=== PATIENT | male | born 2000 | race Hispanic/Latino ===

== ENCOUNTER 2021-01-02 14:19 | Inpatient (IN) | payer OTHER ==
[~2021-01-02] VITALS: Ht 167.6 cm; Wt 86.3 kg
[2021-01-02 14:54] LABS: HEMATOCRIT 41.2 % (42.0-52.0); HEMOGLOBIN 14.3 g/dl (13.5-17.5); MEAN CORPUSCULAR HEMOGLOBIN 31.4 pg (27.0-33.0); MEAN CORPUSCULAR HGB CONC 34.7 g/dl (32.0-36.5); MEAN CORPUSCULAR VOLUME 90.4 fl (80.0-96.0); PLATELET COUNT, AUTOMATED 284 10^3/uL (150-450); RED BLOOD COUNT 4.56 10^6/uL (4.30-6.10); WHITE BLOOD COUNT 7.8 10^3/uL (4.0-10.0)
[2021-01-02 15:37] LABS: ACETAMINOPHEN LEVEL < 2.0 UG/ML (10.0-30.0); ALBUMIN 4.5 GM/DL (3.2-5.2); ALT/SGPT 35 U/L (12-78); BILIRUBIN,DIRECT < 0.1 MG/DL (0.0-0.2); BILIRUBIN,TOTAL 0.3 MG/DL (0.2-1.0); BLOOD UREA NITROGEN 15 MG/DL (7-18); CALCIUM LEVEL 9.3 MG/DL (8.5-10.1); CARBON DIOXIDE LEVEL 30 MEQ/L (21-32); CHLORIDE LEVEL 104 MEQ/L (98-107); CREATININE FOR GFR 0.88 MG/DL (0.70-1.30); ETHYL ALCOHOL (ETHANOL) < 0.003 % (0.000-0.010); GLUCOSE, FASTING 90 MG/DL (70-100); POTASSIUM SERUM 3.9 MEQ/L (3.5-5.1); SALICYLATE LEVEL < 1.7 MG/DL (5.0-30.0); SODIUM LEVEL 139 MEQ/L (136-145); THYROID STIMULATING HORMONE 0.336 uIU/ML (0.463-3.98); TOTAL PROTEIN 7.8 GM/DL (6.4-8.2)
[2021-01-02 17:40] LABS: AMPHETAMINES LEVEL URINE NEGATIVE (NEGATIVE); BARBITURATES URINE NEGATIVE (NEGATIVE); BENZODIAZEPINES URINE NEGATIVE (NEGATIVE); CANNABINOIDS URINE NEGATIVE (NEGATIVE); COCAINE METABOLITE URINE NEGATIVE (NEGATIVE); METHADONE URINE NEGATIVE (NEGATIVE); OPIATES URINE NEGATIVE (NEGATIVE); PHENCYCLIDINE URINE NEGATIVE (NEGATIVE)
[2021-01-02 17:42] LABS: RSV AMPLIFICATION NEGATIVE (NEGATIVE)
[2021-01-02] MEDS ORDERED: MAALOX 30 ML SUSP *UDC PO PRN (19:15)
[2021-01-02] MEDS ORDERED: ACETAMINOPHEN TAB 650MG DOSE (2X325MG) PO PRN (19:15)
[2021-01-02] MEDS ORDERED: MOM 30ML SUSPENSION UDC PO PRN (19:15)
[2021-01-02 23:19] VITALS: BP 130/70
--- NOTE | 2021-01-03 10:35 | MHHPEPDOC ---
General Date Of Admission: Jan 02, 2021 Legal Status: 9.39 Chief Complaint "[I have been feeling very depressed and was thinking of killing myself]. History of Present Illness HISTORY OF THE PRESENT ILLNESS: Patient is a 20 -year-old , male, who [has no prior psychiatric history but has been in outpatient counseling on the [facility] for the past month. Patient stated that he has been feeling very worthless and lonely and depressed for the past month due to multiple stressors in his life. He recently found out that his father may not be his biological father but he also has been feeling more lonely and homesick and also does not feel that he is as good as other members in his company. He stated that he was thinking of killing himself and the feeling was getting stronger yesterday so he went to his counseling service on the [facility] who recommended him to come to emergency room. He is denying any previous history of suicidal attempt although he was thinking different ways of doing it for the past 3 weeks. He denies any substance abuse issues denies any history of psychosis and denies any hallucination or paranoia. He had an episode of depression in his high school and was tried on antidepressant once but did not have any very good experience and does not want any antidepressant therapy. He denies any history of rasheeda and denies any history of depression in his family. He admits that he is homesick and does not really feel he is good in his [employer] life and is is ambivalent about his career]. Psychiatric Review of Systems Depression (2 or more weeks): depressed mood, feelings of worthlesness, decreased energy, suicidal thoughts Rasheeda (4 or more days of): denies Psychosis: denies PTSD: denies Anxiety: situational anxiety Past Psychiatric History Previous Psychiatric Diagnosis: . Depression in his high school days Previous Psychiatric Admissions: . No previous inpatient treatment Suicide Attempts: . No history of actual attempt Psychiatric Follow-up: . Been in outpatient counseling for the past month Psychiatric medications: . 1 antidepressant trial several years ago Past Medical History Medical Problems No medical history Head Injury: No Seizures: No Hospitalizations: No Surgeries: No Family Medical/Psychiatric HX Medical Problems Noncontributory Psychiatric Disorders: No Addiction: No Suicide Attemps/Completions: No Addiction History denies Social History childhood: . Born in [place] [employer] uneventful childhood Abuse/Trauma:[No history of abuse]. Current Living Situation: Lives on the [facility]. Education: . High school Employment: . Joined the [employer] last year Social Support: . Family Legal: Patient denies any legal history Marital: . Never Mental Status Examination General Appearance: appears stated age Build: average Demeanor: average Eye Contact: average Activity: average Behavior: cooperative Speech: clear, slow, low in volume Mood: depressed, anxious Mood Feeling sad depressed and feeling worthless at times for the past month Thought Process: logical/linear Thought Content (Delusions): none reported, other (Suicidal thoughts without any clear plan or intent for the past month) Thought Content (Other): none reported Thought Content (Aggressive): none reported Perception (Hallucinations): none reported Perception (Other): none reported Cognition (Impairment of): none reported Cognition(Intelligence Est.): average Oriented: Awake, Alert, Oriented times three Insight: fair Judgment: Fair Psychosis: Denies Diagnoses Depressive disorder NOS rule out adjustment disorder with mixed emotion A-FIB/CHADSVASC A-FIB History Current/History of A-Fib/PAF?: No Current PO Anticoag Therapy: No Age/Risk Factor Scoring CHADSVASC: CHADSVASC Response (Comments) Value Gender Risk Factor Male 0 Hx of CHF No 0 Hx of HTN No 0 Hx of Stroke/TIA/or VTE No 0 Hx of Diabetes No 0 Hx of Vascular Disease No 0 Total 0 Treatment Treatment ordered: NONE Assessment Patient reports significant depressive symptoms but is not willing to consider antidepressant treatment. He has a several situational stressors that could be helped with the individual therapy we will continue with the supportive therapy and lethality evaluation Initial Treatment Plan 1. Patient was admitted on a 9.39 status. 2. Complete history was obtained. 3. With patients permission, family will be contacted and database will be expanded. 4. Patients medication regimen will be reviewed and changed accordingly. 5. Patient will be provided with protected environment. 6. Patient will be treated with individual, group, and milieu therapies. 7. Patient will receive supportive psych-education. 8. Discharge planning will commence immediately. 9. Outpatient follow-up treatment will be strongly recommended. 10. The initial treatment plan will focus initially on: * Depression. * Risk for suicide. ESTIMATED LENGTH OF STAY: 3-5 DAYS. TIME SPENT COUNSELING AND COORDINATING INITIAL CARE: 45 minutes. Tobacco Cessation Screen If Patient is a Smoker Non-smoker N/A-No Antipsychotics Vital Signs Vital Signs Date Time Temp Pulse Resp B/P (MAP) Pulse Ox O2 Delivery O2 Flow Rate FiO2 01/02/21 23:19 97.8 83 18 130/70 (90) 99 Room Air Laboratory Data 24H Labs Laboratory Tests 2 01/02/21 14:45: Nucleated Red Blood Cells % (auto) 0.0, Anion Gap 5L, Calcium Level 9.3, Total Bilirubin 0.3, Direct Bilirubin < 0.1, Aspartate Amino Transf (AST/SGOT) 27, Alanine Aminotransferase (ALT/SGPT) 35, Alkaline Phosphatase 108, Total Protein 7.8, Albumin 4.5, Albumin/Globulin Ratio 1.4, Thyroid Stimulating Hormone (TSH) 0.336L, Salicylates Level < 1.7L, Acetaminophen Level < 2.0L, Ethyl Alcohol Level < 0.003 01/02/21 16:48: Urine Opiates Screen NEGATIVE, Urine Methadone Screen NEGATIVE, Urine Barbiturates Screen NEGATIVE, Urine Phencyclidine Screen NEGATIVE, Urine Amphetamines Screen NEGATIVE, Urine Benzodiazepines Screen NEGATIVE, Urine Cocaine Metabolite Screen NEGATIVE, Urine Cannabinoids Screen NEGATIVE, Coronavirus (COVID-19)(PCR) NEGATIVE, Influenza Type A (RT-PCR) NEGATIVE, Influenza Type B (RT-PCR) NEGATIVE, Respiratory Syncytial Virus (PCR) NEGATIVE CBC/BMP Laboratory Tests 01/02/21 14:45 Medications No Active Prescriptions or Reported Meds Allergies Coded Allergies: No Known Allergies (Unverified , 01/02/21) JENNIFER UNDERWOOD M.D. Jan 03, 2021 10:35
[2021-01-03 16:16] VITALS: BP 145/67
--- NOTE | 2021-01-03 18:07 | HPEPDOC ---
[facility] Medical History & Physical Date of Admission Jan 03, 2021 Date of Service: Jan 03, 2021 History and Physical CHIEF COMPLAINT: Suicidal ideation HISTORY OF PRESENT ILLNESS: 20-year-old male with no prior medical or psychiatric history, presented with thoughts and feelings of low self worth depression and thoughts of suicide. He patient has been having trouble at home is unsure if his father is his biological father. [place] recommended the patient go to the emergency room. Patient denies taking any substances or having any substance abuse issues. He is still having thoughts of self-harm, but denies any hallucinations, auditory or visual. He denies any chest pain, seizures of breath, palpitations, fever, chills, nausea, vomiting, diarrhea. PAST MEDICAL HISTORY: Reports no prior medical history PAST SURGICAL HISTORY: Worsened prior surgical history SOCIAL HISTORY: Patient denies smoking Patient denies etoh use Patient denies illicit drug use ALLERGIES: Please see below. REVIEW OF SYSTEMS: CONSTITUTIONAL: patient denies fevers, chills HEENT: patient denies blurred vision, loss of vision, headache,. CARDIOVASCULAR: patient denies chest pain, palpitations. RESPIRATORY: patient denies shortness of breath, cough, hemoptysis. GASTROINTESTINAL: patient denies abdominal pain, n/v/d, blood in stool. GENITOURINARY: patient denies dysuria, discharge. SKIN: patient denies rashes. MUSCULOSKELETAL: patient denies joint pain, neck pain. NEUROLOGICAL: patient denies focal weakness, numbness, seizures. PSYCHIATRIC: patient denies SI/HI. ENDOCRINE: patient denies polyuria, heat intolerance, cold intolerance. HEMATOLOGIC/LYMPHATIC: patient denies easy bruising. HOME MEDICATIONS: Please see below. PHYSICAL EXAMINATION: VITAL SIGNS: please see below General: NAD, comfortable HEENT: PERRLA, EOMI, sclerae clear Neck: supple, normal ROM, no JVD Respiratory: lungs CTAB, no wheeze, no rales, no crackles CVS: RRR, normal S1, S2, no murmurs Abdo: soft, no masses, no hepatosplenomegaly, BS+, no rebound tenderness Extremities: no edema, pulses 2+ MSK: no joint deformities, normal ROM Neuro: no focal neuro deficits, moving all 4 extremities, CN2-12 intact. Strength 5/5 in all 4 extremities. No nystagmus. Psych: calm, cooperative, AAO x 3 LABORATORY DATA: See below. MICROBIOLOGY: Please see below. ASSESSMENT:-year-old male with no past medical history presented with thoughts of self-harm. Admitted to [facility] for psychiatric treatment. PLAN: Suicidal ideation: Per psychiatry Obesity: Complicating care. BMI 30.7 Hypertension: Likely related to obesity, lifestyle modification and counseling provided. Dispo: admission expect to last > 2 midnights Vital Signs Vital Signs Date Time Temp Pulse Resp B/P (MAP) Pulse Ox O2 Delivery O2 Flow Rate FiO2 01/03/21 16:16 98.1 84 16 145/67 (93) 01/02/21 23:19 99 Room Air Home Medications Scheduled Sertraline HCl (Sertraline HCl) 50 Mg Tablet, 50 MG PO DAILY for Mood Scheduled PRN Trazodone HCl (Trazodone HCl) 50 Mg Tablet, 50 MG PO QHSP PRN for INSOMNIA Allergies Coded Allergies: No Known Allergies (Unverified , 01/02/21) A-FIB/CHADSVASC A-FIB History Current/History of A-Fib/PAF?: No Age/Risk Factor Scoring CHADSVASC: CHADSVASC Response (Comments) Value Gender Risk Factor Male 0 Hx of CHF No 0 Hx of HTN No 0 Hx of Stroke/TIA/or VTE No 0 Hx of Diabetes No 0 Hx of Vascular Disease No 0 Total 0 TREVOR TERRY MD Jan 03, 2021 18:07
[2021-01-04 05:42] VITALS: BP 109/55
--- NOTE | 2021-01-04 08:18 | MHIPNPDOC ---
[facility] Progress Note Progress Note DATE OF SERVICE: 01/04/21 The patient remains markedly withdrawn preoccupied with very blunted affect. He states that he is still feeling very sad and lonely hopeless and at times wort hless. He states that his suicidal thoughts are not as intense and he is not having any homicidal thoughts but does not feel much better and he is willing to try antidepressant medicine. We will start Zoloft 50 mg daily and patient agreed and was given education about the medication. HISTORY:. VITAL SIGNS: See below. NEW TEST RESULTS:. CURRENT MEDICATIONS: See below. MENTAL STATUS EXAMINATION: Patient is a 20-year old male, who is cooperative. Speech: Is rational but not productive. Language skills are good. Thought processes including: Speech is not productive and not spontaneous does not want to elaborate. Thought content: Denies any hallucination or paranoia. Abstract reasoning, and computation: Fair. Description of associations: Coherent. Description of abnormal or psychotic thoughts: Denies any. Judgment: Fair. Insight: Fair. Orientation: Well oriented. Recent and remote memory: Unimpaired. Attention span and concentration: Fair. Language:. Fund of knowledge:. Mood: Sad depressed. Affect: Blunted preoccupied. DIAGNOSES: 1.. Depressive disorder NOS 2.. 3.. ASSESSMENT: Remains depressed with a markedly blunted affect but denies any active suicidal plan or intent MANAGEMENT PLAN: Start Zoloft 50 mg daily supportive therapy. TIME SPENT: 20 minutes. Vital Signs Vital Signs Date Time Temp Pulse Resp B/P (MAP) Pulse Ox O2 Delivery O2 Flow Rate FiO2 01/04/21 05:42 98.4 80 18 109/55 (73) 96 Room Air Current Medications Current Medications Medications (Trade) Dose Ordered Sig/Bernabe Route PRN Reason Start Time Stop Time Status Last Admin Dose Admin Acetaminophen (Tylenol Tab) 650 mg Q6HP PRN PO HEADACHE or MILD DISCOMFORT 01/02/21 19:15 Al Hydrox/Mg Hydrox/Simethicone (Mylanta) 30 ml Q4HP PRN PO HEARTBURN/INDIGESTION 01/02/21 19:15 Home Med (Med Rec Complete!) ASDIRECTED XX 01/02/21 18:40 01/02/21 18:42 DC Hydroxyzine HCl (Atarax) 25 mg Q6HP PRN PO ANXIETY 01/03/21 10:25 Magnesium Hydroxide (Milk Of Magnesia) 30 ml DAILYPRN PRN PO CONSTIPATION 01/02/21 19:15 Trazodone HCl (Desyrel) 50 mg QHSP PRN PO INSOMNIA 01/02/21 19:15 Allergies Coded Allergies: No Known Allergies (Unverified , 01/02/21) JENNIFER UNDERWOOD M.D. Jan 04, 2021 08:18
[2021-01-04] MEDS: hydrOXYzine 25 MG TAB PO PRN (08:19)
[2021-01-04] MEDS: SERTRALINE HCL 50 MG TAB PO SCH (08:41)
[2021-01-04 18:36] VITALS: BP 110/57
[2021-01-04] MEDS: traZODone 50 MG TAB PO PRN (20:59)
[2021-01-05 06:00] VITALS: BP 114/66
[2021-01-05] MEDS: SERTRALINE HCL 50 MG TAB PO SCH (08:47)
--- NOTE | 2021-01-05 15:00 | MHIPNPDOC ---
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 Patient stated that he has been feeling very worthless and lonely and depressed for the past month due to multiple stressors in his life. He recently found out that his father may not be his biological father but he also has been feeling more lonely and homesick and also does not feel that he is as good as other members in his company. He stated that he was thinking of killing himself and the feeling was getting stronger yesterday so he went to his counseling service on the [facility] who recommended him to come to emergency room. He is denying any previous history of suicidal attempt although he was thinking different ways of doing it for the past 3 weeks. He denies any substance abuse issues denies any history of psychosis and denies any hallucination or paranoia. He had an episode of depression in his high school and was tried on antidepressant once but did not have any very good experience and does not want any antidepressant therapy. He denies any history of edilberto and denies any history of depression in his family. He admits that he is homesick and does not really feel he is good in his [employer] life and is ambivalent about his career. VITAL SIGNS: See below. CURRENT MEDICATIONS: See below. 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 who is he also has been feeling more lonely and homesick and also reporting feeling suicidal General Appearance: appears stated age Build: average Demeanor: average Eye Contact: average Activity: average Behavior: cooperative Speech: clear, slow, low in volume Mood: depressed, anxious Mood Feeling sad depressed and feeling worthless at times for the past month Thought Process: logical/linear Thought Content (Delusions): none reported, other (Suicidal thoughts but reports that he was trying with alcohol poisoning and overdose on Tylenol) Thought Content (Other): none reported Thought Content (Aggressive): none reported Perception (Hallucinations): none reported Perception (Other): none reported Cognition (Impairment of): none reported Cognition(Intelligence Est.): average Oriented: Awake, Alert, Oriented times three Insight: fair Judgment: Fair Psychosis: Denies DIAGNOSES: Unspecified Depressive disorder ASSESSMENT: Patient remains depressed and anxious. States that he has been feeling more depressed this week due to the increased stress at work ([employer]) He states that he is taking classes that he is struggling with. Also states that he had poor motivation, misses home and recent information about his family has made it difficult to concentrate. Reports that his depression is 6/10 and his anxiety is 5/10 and has decreased suicidal thinking, not as strong or intense. MANAGEMENT PLAN: Continue all medications as ordered, discharge later this week TIME SPENT: 25 minutes. Vital Signs Vital Signs Date Time Temp Pulse Resp B/P (MAP) Pulse Ox O2 Delivery O2 Flow Rate FiO2 01/05/21 06:00 98.2 77 16 114/66 (82) 99 Room Air Current Medications Current Medications Medications (Trade) Dose Ordered Sig/Bernabe Route PRN Reason Start Time Stop Time Status Last Admin Dose Admin Acetaminophen (Tylenol Tab) 650 mg Q6HP PRN PO HEADACHE or MILD DISCOMFORT 01/02/21 19:15 Al Hydrox/Mg Hydrox/Simethicone (Mylanta) 30 ml Q4HP PRN PO HEARTBURN/INDIGESTION 01/02/21 19:15 Home Med (Med Rec Complete!) ASDIRECTED XX 01/02/21 18:40 01/02/21 18:42 DC Hydroxyzine HCl (Atarax) 25 mg Q6HP PRN PO ANXIETY 01/03/21 10:25 01/04/21 08:19 Magnesium Hydroxide (Milk Of Magnesia) 30 ml DAILYPRN PRN PO CONSTIPATION 01/02/21 19:15 Sertraline HCl (Zoloft) 50 mg DAILY PO 01/04/21 09:00 01/05/21 08:47 Trazodone HCl (Desyrel) 50 mg QHSP PRN PO INSOMNIA 01/02/21 19:15 01/04/21 20:59 Allergies Coded Allergies: No Known Allergies (Unverified , 01/02/21) RADHA BURKS [employer]STRUCTION SERVICES TECHNICIAN Jan 05, 2021 15:00
[2021-01-05 17:10] VITALS: BP 123/58
[2021-01-05] MEDS: traZODone 50 MG TAB PO PRN (20:26)
[2021-01-06] MEDS: SERTRALINE HCL 50 MG TAB PO SCH (08:06)
--- NOTE | 2021-01-06 12:29 | MHIPNPDOC ---
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 Patient stated that he has been feeling very worthless and lonely and depressed for the past month due to multiple stressors in his life. He recently found out that his father may not be his biological father but he also has been feeling more lonely and homesick and also does not feel that he is as good as other members in his company. He stated that he was thinking of killing himself and the feeling was getting stronger yesterday so he went to his counseling service on the [facility] who recommended him to come to emergency room. He is denying any previous history of suicidal attempt although he was thinking different ways of doing it for the past 3 weeks. He denies any substance abuse issues denies any history of psychosis and denies any hallucination or paranoia. He had an episode of depression in his high school and was tried on antidepressant once but did not have any very good experience and does not want any antidepressant therapy. He denies any history of edilberto and denies any history of depression in his family. He admits that he is homesick and does not really feel he is good in his [employer] life and is ambivalent about his career. VITAL SIGNS: See below. CURRENT MEDICATIONS: See below. 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 who is he also has been feeling more lonely and homesick and also reporting feeling suicidal General Appearance: appears stated age Build: average Demeanor: average Eye Contact: average Activity: average Behavior: cooperative Speech: clear, slow, low in volume Mood: depressed, anxious Mood Feeling sad depressed and feeling worthless at times for the past month Thought Process: logical/linear Thought Content (Delusions): none reported, other Thought Content (Other): none reported Thought Content (Aggressive): none reported Perception (Hallucinations): none reported Perception (Other): none reported Cognition (Impairment of): none reported Cognition(Intelligence Est.): average Oriented: Awake, Alert, Oriented times three Insight: fair Judgment: Fair Psychosis: Denies DIAGNOSES: Unspecified Depressive disorder ASSESSMENT: Patient reports mild decrease in depression and anxiety. He states that he would like to leave the [employer] because he wants to feel better in his job. 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 States that he wants to be in a more supportive place in his life. He doesn't believe that the [employer] is the right fit for him. States that he enlisted because he was struggling to find a job. States [employer] is his first active duty station and that he is unhappy. 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 Has limited supports in the [employer]. He is hoping to be discharge from the [employer] before his contract and return home. He is somewhat social with other peers on unit. He was superficial in the interview. MANAGEMENT PLAN: Continue all medications as ordered, discharge later this week TIME SPENT: 25 minutes. Vital Signs Vital Signs Vital Signs Date Time Temp Pulse Resp B/P (MAP) Pulse Ox O2 Delivery O2 Flow Rate FiO2 01/06/21 08:10 Room Air 01/05/21 17:10 98.3 90 16 123/58 (79) 98 Current Medications Current Medications Medications (Trade) Dose Ordered Sig/Bernabe Route PRN Reason Start Time Stop Time Status Last Admin Dose Admin Acetaminophen (Tylenol Tab) 650 mg Q6HP PRN PO HEADACHE or MILD DISCOMFORT 01/02/21 19:15 Al Hydrox/Mg Hydrox/Simethicone (Mylanta) 30 ml Q4HP PRN PO HEARTBURN/INDIGESTION 01/02/21 19:15 Home Med (Med Rec Complete!) ASDIRECTED XX 01/02/21 18:40 01/02/21 18:42 DC Hydroxyzine HCl (Atarax) 25 mg Q6HP PRN PO ANXIETY 01/03/21 10:25 01/04/21 08:19 Magnesium Hydroxide (Milk Of Magnesia) 30 ml DAILYPRN PRN PO CONSTIPATION 01/02/21 19:15 Sertraline HCl (Zoloft) 50 mg DAILY PO 01/04/21 09:00 01/06/21 08:06 Trazodone HCl (Desyrel) 50 mg QHSP PRN PO INSOMNIA 01/02/21 19:15 01/05/21 20:26 Allergies Coded Allergies: No Known Allergies (Unverified , 01/02/21) RADHA BURKS NP Jan 06, 2021 12:12
[2021-01-06 17:06] VITALS: BP 132/66
[2021-01-06] MEDS: traZODone 50 MG TAB PO PRN (20:36)
[2021-01-07 06:24] VITALS: BP 131/73
[2021-01-07] MEDS: SERTRALINE HCL 50 MG TAB PO SCH (08:21)
--- NOTE | 2021-01-07 11:06 | MHIPNPDOC ---
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 Patient stated that he has been feeling very worthless and lonely and depressed for the past month due to multiple stressors in his life. He recently found out that his father may not be his biological father but he also has been feeling more lonely and homesick and also does not feel that he is as good as other members in his company. He stated that he was thinking of killing himself and the feeling was getting stronger yesterday so he went to his counseling service on the [facility] who recommended him to come to emergency room. He is denying any previous history of suicidal attempt although he was thinking different ways of doing it for the past 3 weeks. He denies any substance abuse issues denies any history of psychosis and denies any hallucination or paranoia. He had an episode of depression in his high school and was tried on antidepressant once but did not have any very good experience and does not want any antidepressant therapy. He denies any history of edilberto and denies any history of depression in his family. He admits that he is homesick and does not really feel he is good in his [employer] life and is ambivalent about his career. VITAL SIGNS: See below. CURRENT MEDICATIONS: See below. 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 who is he also has been feeling more lonely and homesick and also reporting feeling suicidal General Appearance: appears stated age Build: overweight Demeanor: average Eye Contact: average Activity: average Behavior: cooperative Speech: clear, slow, low in volume Mood: less depressed affect: brighter Thought Process: logical/linear Thought Content (Delusions): none reported, other Thought Content (Other): none reported Thought Content (Aggressive): none reported Perception (Hallucinations): none reported Perception (Other): none reported Cognition (Impairment of): none reported Cognition(Intelligence Est.): average Oriented: Awake, Alert, Oriented times three Insight: fair Judgment: Fair Psychosis: Denies DIAGNOSES: Unspecified Depressive disorder ASSESSMENT: 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 Has still not talked to chain of command about his avenues to do this. 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 Depres charley is 3/10 and anxiety is 7/10. Patient has history of attempted Tylenol overdose - tried to take 20 pills. Anxious about going back to [place] - worried his team won't see him the same way. Last time he had suicidal ideation was last Tuesday01/02/21. Says that thinking about his family makes him not want to commit suicide. Says that he will be safe to be discharged tomorrow. MANAGEMENT PLAN: Continue all medications as ordered, discharge tomorrow TIME SPENT: 25 minutes. Vital Signs Vital Signs Date Time Temp Pulse Resp B/P (MAP) Pulse Ox O2 Delivery O2 Flow Rate FiO2 01/07/21 08:57 Room Air 01/07/21 06:24 98.3 84 20 131/73 (92) 98 Current Medications Current Medications Medications (Trade) Dose Ordered Sig/Bernabe Route PRN Reason Start Time Stop Time Status Last Admin Dose Admin Acetaminophen (Tylenol Tab) 650 mg Q6HP PRN PO HEADACHE or MILD DISCOMFORT 01/02/21 19:15 Al Hydrox/Mg Hydrox/Simethicone (Mylanta) 30 ml Q4HP PRN PO HEARTBURN/INDIGESTION 01/02/21 19:15 Home Med (Med Rec Complete!) ASDIRECTED XX 01/02/21 18:40 01/02/21 18:42 DC Hydroxyzine HCl (Atarax) 25 mg Q6HP PRN PO ANXIETY 01/03/21 10:25 01/04/21 08:19 Magnesium Hydroxide (Milk Of Magnesia) 30 ml DAILYPRN PRN PO CONSTIPATION 01/02/21 19:15 Sertraline HCl (Zoloft) 50 mg DAILY PO 01/04/21 09:00 01/07/21 08:21 Trazodone HCl (Desyrel) 50 mg QHSP PRN PO INSOMNIA 01/02/21 19:15 01/06/21 20:36 Allergies Coded Allergies: No Known Allergies (Unverified , 01/02/21) RADHA BURKS NP Jan 07, 2021 11:06
[2021-01-07] MEDS ORDERED: TRAZ-252 PO (13:52)
[2021-01-07] MEDS ORDERED: SERT50TA29 PO (13:52)
[2021-01-07] MEDS: hydrOXYzine 25 MG TAB PO PRN (17:01)
[2021-01-07 17:22] VITALS: BP 148/78
[2021-01-07] MEDS: traZODone 50 MG TAB PO PRN (20:15)
[2021-01-08 05:53] VITALS: BP 144/64
[2021-01-08 06:00] VITALS: BP 144/64
[2021-01-08] MEDS: hydrOXYzine 25 MG TAB PO PRN (08:20)
[2021-01-08] MEDS: SERTRALINE HCL 50 MG TAB PO SCH (08:20)
--- NOTE | 2021-01-08 08:59 | MHDSPDOC ---
[facility] Discharge Summary Discharge Summary DATE OF ADMISSION: Jan 02, 2021 at 19:15 DATE OF DISCHARGE: DISCHARGE DIAGNOSES: 1. 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 for the past month. Patient stated that he has been feeling very worthless and lonely and depressed for the past month due to multiple stressors in his life. He recently found out that his father may not be his biological father but he also has been feeling more lonely and homesick and also does not feel that he is as good as other members in his company. He stated that he was thinking of killing himself and the feeling was getting stronger yesterday so he went to his counseling service on the [facility] who recommended him to come to emergency room. He is denying any previous history of suicidal attempt although he was thinking different ways of doing it for the past 3 weeks. He denies any substance abuse issues denies any history of psychosis and denies any hallucination or paranoia. He had an episode of depression in his high school and was tried on antidepressant once but did not have any very good experience and does not want any antidepressant therapy. He denies any history of edilberto and denies any history of depression in his family. He admits that he is homesick and does not really feel he is good in his [employer] life and is ambivalent about his career. VITAL SIGNS: See below. CONSULTANTS INVOLVED: See Medical H + P by Hospitalist TREATMENT AND PROGRESS ON THE UNIT: Patient was admitted to the [facility] on a 9.39 legal status he was afforded the following treatment modalities: 1) Individual Therapy 2) Group Therapy 3) Medication Management 4) Milieu Therapy 5) Safe Environment HOSPITAL COURSE: Patient initially came to the unit for suicidal ideation and attempted suicide and was admitted to [facility] on a 9.39 legal status. 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 He was started on Zoloft 50 mg and he tolerated this well with no reports of side effects. He reported that he had difficulty sleeping and was ordered Trazodone 50 mg at and this was reported to be effective as well. Patient was coope rative on the unit, attended groups, was observed in the milieu engaged and social with another Active Duty solder. He also was agreeable to medications, attended groups and was attentive and engaged in the individual therapy. DISCHARGE ASSESSMENT: Patient initially came to the unit for suicidal ideation and attempted suicide and was admitted to [facility] on a 9.39 legal status. 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 Patient says he no longer has suicidal ideation. Patient is confident that he will no longer have suicidal ideation once he [place] back to base. Patient still reports a depressed mood and some anxiety. When asked why he thinks he will not have suicidal ideation he says that he could not hurt his little sister like that. Patient also says that he talk to his parents that they are very supportive of him. Patient's plan is to try to get discharged from the and then go back home. Patient says that if he is unable to get discharged he will be fine sticking through with and will try to get discharged again in July. In today's interview, patient is alert and oriented, pts dress is appropriate. Hygiene and grooming is well-kempt. Smiles on approach and is pleasant and engaged in the interview. Denies depression and anxiety. Denies suicidal and homicidal ideation, planning or intent. Denies and is not observed with edilberto, psychotic symptoms of delusions, bizarre thinking, obsessions, paranoia, ruminations illogical thoughts, flight of ideas or having poor insight and judgement. Patient has normal mentation, declines further hospitalization on a voluntary status and meets criteria for discharge today. MENTAL STATUS EXAMINATION ON DISCHARGE: Patient is a 20-year old male, who is depressed and has reported suicidal ideation. Speech is normal rate and content. Language skills are intact. Thought processes including: Linear. Thought content: No delusions. Abstract reasoning, and computation: Intact. Description of associations: Intact. Description of abnormal or psychotic thoughts: No psychotic thought. Judgment: Good. Insight: Good. Orientation to alert and oriented x3. Recent and remote memory: Intact. Attention span and concentration: normal. Language: Its content is average to fair. Fund of knowledge: Average. Mood: Patient reports some depressed mood and anxiety but much better than before. Affect: Patient baseline normal. MEDICATIONS ON DISCHARGE: Refer to medication list PLAN/FOLLOWUP ARRANGEMENTS: [facility] will be [facility] to [facility] team will continue treatment and therapy for the patient. The amount of time spent in the coordination of care for this patient was approximately 25 minutes. ETOH/Disorder Med Rx ETOH/DRUG DISORDER RX: Offrd @ d/c & pt refused Vital Signs/I&Os Vital Signs Date Time Temp Pulse Resp B/P (MAP) Pulse Ox O2 Delivery O2 Flow Rate FiO2 01/08/21 05:53 97.7 82 18 144/64 (90) 97 Room Air Medications Scheduled Sertraline HCl (Sertraline HCl) 50 Mg Tablet, 50 MG PO DAILY for Mood, #7 Scheduled PRN Trazodone HCl (Trazodone HCl) 50 Mg Tablet, 50 MG PO QHSP PRN for INSOMNIA, #7 Allergies Coded Allergies: No Known Allergies (Unverified , 01/02/21) RADHA BURKS NP Jan 08, 2021 08:59
== END 2021-01-08 11:31 | disposition home or self-care (01) | DRG 881 ==
LOC: M ED 14:19 → EDBD 14:19 → M ED INP 19:15 → M PSY 22:33
PROVIDERS: ADMIT Psychiatry & Neurology Psychiatry; ATTEND Psychiatry & Neurology Psychiatry
DX: F32.9 Major depressive disorder, single episode, unspecified (principal); R45.851 Suicidal ideations; Z20.822 Contact with and (suspected) exposure to COVID-19; E66.9 Obesity, unspecified; Z68.30 Body mass index [BMI] 30.0-30.9, adult; I10 Essential (primary) hypertension; Z79.899 Other long term (current) drug therapy; Z56.3 Stressful work schedule; Z91.5 Personal history of self-harm

== ENCOUNTER 2021-02-06 20:43 | Emergency (ER) | payer OTHER ==
[~2021-02-06] VITALS: Ht 167.6 cm; Wt 100.0 kg
[~2021-02-06 20:43] MED LIST: SERT50TA29 PO; TRAZ-252 PO
[2021-02-06] MEDS ORDERED: NS 1,000 ML IV ONE (21:05)
[2021-02-06 21:24] LABS: BASO % 0.2 % (0.0-1.0); EOS % 0.1 % (0.0-3.0); HEMATOCRIT 38.7 % (42.0-52.0); HEMOGLOBIN 13.2 g/dl (13.5-17.5); LYMPH # 0.7 10^3/uL (1.5-5.0); MEAN CORPUSCULAR HEMOGLOBIN 31.7 pg (27.0-33.0); MEAN CORPUSCULAR HGB CONC 34.1 g/dl (32.0-36.5); MEAN CORPUSCULAR VOLUME 92.8 fl (80.0-96.0); MONO # 0.3 10^3/uL (0.0-0.8); MONO % 2.5 % (2.0-8.0); NEUTROPHILS # 10.9 10^3/uL (1.5-8.5); NEUTROPHILS % 90.4 % (36.0-66.0); PLATELET COUNT, AUTOMATED 298 10^3/uL (150-450); RED BLOOD COUNT 4.17 10^6/uL (4.30-6.10)
[2021-02-06 21:56] LABS: ACETAMINOPHEN LEVEL < 2.0 UG/ML (10.0-30.0); ALT/SGPT 49 U/L (12-78); BILIRUBIN,DIRECT < 0.1 MG/DL (0.0-0.2); BILIRUBIN,TOTAL 0.3 MG/DL (0.2-1.0); BLOOD UREA NITROGEN 18 MG/DL (7-18); CALCIUM LEVEL 8.6 MG/DL (8.5-10.1); CARBON DIOXIDE LEVEL 26 MEQ/L (21-32); CHLORIDE LEVEL 109 MEQ/L (98-107); CPK CREATINE PHOSPHOKINASE 184 U/L (39-308); CREATININE FOR GFR 1.27 MG/DL (0.70-1.30); ETHYL ALCOHOL (ETHANOL) < 0.003 % (0.000-0.010); GLUCOSE, FASTING 163 MG/DL (70-100); POTASSIUM SERUM 4.5 MEQ/L (3.5-5.1); SALICYLATE LEVEL < 1.7 MG/DL (5.0-30.0); SODIUM LEVEL 141 MEQ/L (136-145); THYROID STIMULATING HORMONE 0.219 uIU/ML (0.463-3.98); TOTAL PROTEIN 7.3 GM/DL (6.4-8.2)
[2021-02-07 00:42] LABS: AMPHETAMINES LEVEL URINE NEGATIVE (NEGATIVE); BARBITURATES URINE NEGATIVE (NEGATIVE); BENZODIAZEPINES URINE NEGATIVE (NEGATIVE); CANNABINOIDS URINE POSITIVE (NEGATIVE); COCAINE METABOLITE URINE NEGATIVE (NEGATIVE); METHADONE URINE NEGATIVE (NEGATIVE); OPIATES URINE NEGATIVE (NEGATIVE); PHENCYCLIDINE URINE NEGATIVE (NEGATIVE)
[2021-02-07 05:41] VITALS: BP 108/52
--- NOTE | 2021-02-07 09:02 | ECGEPIP ---
[facility] - ED Test Date: 2021-02-06 Pat Name: SLOANE Turnerpartment: Room: - Gender: Male Maintenance Team Member: [facility] : 2000 Requested By: ELSI Haines Order Number: [id number] Reading MD: Luis E Lyn Measurements Intervals [place] Rate: 87 P: 46 NC: 158 QRS: 47 QRSD: 88 T: 26 QT: 376 QTc: 452 Interpretive Statements Normal sinus rhythm NO PRIORS FOR COMPARISON Electronically Signed on 02-07-2021 9:01:37 EDT by Luis E Lyn
== END 2021-02-07 06:20 | disposition home or self-care (01) ==
LOC: M ED 20:43
DX: F12.129 Cannabis abuse with intoxication, unspecified (principal); Z79.899 Other long term (current) drug therapy

== ENCOUNTER 2021-03-03 12:48 | Inpatient (IN) | payer OTHER ==
[~2021-03-03] VITALS: Ht 167.6 cm; Wt 99.6 kg
[2021-03-03 13:30] LABS: HEMATOCRIT 46.2 % (42.0-52.0); HEMOGLOBIN 15.8 g/dl (13.5-17.5); MEAN CORPUSCULAR HGB CONC 34.2 g/dl (32.0-36.5); MEAN CORPUSCULAR VOLUME 90.8 fl (80.0-96.0); PLATELET COUNT, AUTOMATED 300 10^3/uL (150-450); RED BLOOD COUNT 5.09 10^6/uL (4.30-6.10); WHITE BLOOD COUNT 8.7 10^3/uL (4.0-10.0)
[2021-03-03 14:15] LABS: ALBUMIN 4.3 GM/DL (3.2-5.2); ALT/SGPT 55 U/L (12-78); BILIRUBIN,DIRECT < 0.1 MG/DL (0.0-0.2); BILIRUBIN,TOTAL 0.3 MG/DL (0.2-1.0); BLOOD UREA NITROGEN 11 MG/DL (7-18); CALCIUM LEVEL 9.5 MG/DL (8.5-10.1); CARBON DIOXIDE LEVEL 26 MEQ/L (21-32); CHLORIDE LEVEL 106 MEQ/L (98-107); CREATININE FOR GFR 0.75 MG/DL (0.70-1.30); ETHYL ALCOHOL (ETHANOL) < 0.003 % (0.000-0.010); GLUCOSE, FASTING 89 MG/DL (70-100); POTASSIUM SERUM 4.2 MEQ/L (3.5-5.1); SALICYLATE LEVEL 2.3 MG/DL (5.0-30.0); SODIUM LEVEL 138 MEQ/L (136-145); THYROID STIMULATING HORMONE 0.901 uIU/ML (0.463-3.98); TOTAL PROTEIN 7.8 GM/DL (6.4-8.2)
[2021-03-03 14:16] LABS: ACETAMINOPHEN LEVEL < 2.0 UG/ML (10.0-30.0)
[2021-03-03 14:48] LABS: AMPHETAMINES LEVEL URINE NEGATIVE (NEGATIVE); BARBITURATES URINE NEGATIVE (NEGATIVE); BENZODIAZEPINES URINE NEGATIVE (NEGATIVE); CANNABINOIDS URINE NEGATIVE (NEGATIVE); COCAINE METABOLITE URINE NEGATIVE (NEGATIVE); METHADONE URINE NEGATIVE (NEGATIVE); OPIATES URINE NEGATIVE (NEGATIVE); PHENCYCLIDINE URINE NEGATIVE (NEGATIVE)
[2021-03-03] MEDS ORDERED: SERT50TA29 PO (16:39)
[2021-03-03] MEDS ORDERED: HOME MED LIST COMPLETE! XX SCH (16:40)
[2021-03-03 19:04] LABS: RSV AMPLIFICATION NEGATIVE (NEGATIVE)
[2021-03-03] MEDS ORDERED: ACETAMINOPHEN TAB 650MG DOSE (2X325MG) PO PRN (22:15)
[2021-03-03] MEDS ORDERED: MOM 30ML SUSPENSION UDC PO PRN (22:15)
[2021-03-03] MEDS ORDERED: MAALOX 30 ML SUSP *UDC PO PRN (22:15)
[2021-03-04 05:00] VITALS: BP 125/63
[2021-03-04] MEDS ORDERED: hydrOXYzine 50 MG TAB PO PRN (13:00)
[2021-03-04] MEDS: SERTRALINE HCL 25 MG TABLET PO SCH (13:42)
--- NOTE | 2021-03-04 13:59 | MHHPEPDOC ---
General Date Of Admission: Mar 04, 2021 Legal Status: 9.39 Chief Complaint "I didn't feel safe." History of Present Illness HISTORY OF THE PRESENT ILLNESS: Patient is a 20 -year-old Single, , [employer], male, who reports that he was not feeling well or safe and was feeling suicidal and homicidal towards a co-worker (he will not disclose who this is) Patient reports that this co-worker "makes me feel like crap, was making me angry because he was saying that I was faking my depression." Patient was reporting that he has an increase in depressive symptoms: depressed mood, hernandez icidal and homicidal ideations, increased appetite with a 30-40# weight gain in 3 months, feeling hopeless and worthless, feelings of guilt and increase agitation. PER ED REPORT: Pt is seen at [facility] daily for group therapy. Called today stating he was not feeling safe, was brought by ambulance. Pt states he is not feeling well or safe, along with racing thoughts. Pt goes to group therapy daily at [facility] on [address], and today stated to staff that he felt as if he may harm himself or someone else. [facility] staff requested pt to be transported via ambulance for MHE. Pt expresses stressors to include loneliness, work stress- "work is irritating," and financial issues. Pt [facility], but would not elaborate on this. Pt refuses to name the person whom he would like to harm. Pt states he has been overeating and oversleeping. Pt has limited local supports, as his family is from [place]. Pt states to having one friend, Harshal, whom he can talk to. Pt has a history of admission to include [facility], December 2020 for S/I. Pt is seen at [facility] once a month, and goes to daily group therapy at [facility] on [address]. Pt states he is compliant with his medications. Pt state he feels he needs to be admitted as he cannot CFS and feels that if he is discharged, he may harm himself, or someone else. Pt denies having a specific S/I and/or H/I plan. Psychiatric Review of Systems Depression (2 or more weeks): depressed mood, anhedonia, insomnia/hypersomnia, feelings of excess/guilt, feelings of worthlesness, appetite changes, suicidal thoughts, other (homicidal thoughts towards co-worker) Psychosis: denies Anxiety: stressor related anxiety Past Psychiatric History Previous Psychiatric Diagnosis: , Depression in high school, major depressive disorder Previous Psychiatric Admissions: Second admission the last admission December 2019 Suicide Attempts: No actual attempts ideations only Psychiatric Follow-up: [facility] Psychiatric medications: Sertraline 75 mg. Past Medical History Medical Problems No contributory medical history Head Injury: No Seizures: No Hospitalizations: Yes Surgeries: No Family Medical/Psychiatric HX Medical Problems No contributory medical history Psychiatric Disorders: No Addiction: No Suicide Attemps/Completions: No Addiction History other (cannabis use) Social History Childhood: Born in [place], states his childhood was uneventful. Abuse/Trauma:. Current Living Situation: Lives in the [facility] on [address]. Education: High school diploma. Employment: Joined the [employer] last year. Social Support: Family. Legal: Denies any legal history. Marital: Single never no children. Mental Status Examination General Appearance: disheveled, appears stated age, hospital scubs/clothing Build: overweight Demeanor: average Activity: average Behavior: cooperative Speech: clear, reg/rate,rhythm,volume Mood: depressed, anxious Affect: constricted Thought Process: logical/linear Thought Content (Delusions): none reported Thought Content (Other): none reported Thought Content (Aggressive): none reported Perception (Hallucinations): none reported Perception (Other): none reported Cognition (Impairment of): none reported Cognition(Intelligence Est.): average Oriented: Awake, Alert, Oriented times three Insight: fair Judgment: Fair Psychosis: Denies Diagnoses Major depressive disorder, recurrent, moderate Cannabis use disorder A-FIB/CHADSVASC A-FIB History Current/History of A-Fib/PAF?: No Current PO Anticoag Therapy: No Assessment 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 Patient has had 1 other psychiatric admission to this facility in December 2019 with similar complaints. He is reporting several situational stressors one of them being very angry and having's homicidal thoughts to harm another person within his organization, patient refuses to disclose who this person is but states that he has no real intent to harm him. Patient reports that this person has alluded that patient's depression is fake. He states, "he makes me feel like crap ." Patient had stated that he did not feel safe at the time of feeling that he might tactile on any of his feelings patient to be restarted on his home medications we will offer supportive therapies group therapy individual therapy milieu therapy and a safe environment. We will discharge when he is stable and no longer having suicidal thoughts to harm himself. Initial Treatment Plan 1. Patient was admitted on a [9.39] status. 2. Complete history was obtained. 3. With patients permission, family will be contacted and database will be expanded. 4. Patients medication regimen will be reviewed and changed accordingly. 5. Patient will be provided with protected environment. 6. Patient will be treated with individual, group, and milieu therapies. 7. Patient will receive supportive psych-education. 8. Discharge planning will commence immediately. 9. Outpatient follow-up treatment will be strongly recommended. 10. The initial treatment plan will focus initially on: * Depression. * Risk for suicide. ESTIMATED LENGTH OF STAY: 2-5 DAYS. TIME SPENT COUNSELING AND COORDINATING INITIAL CARE: 60 minutes. Tobacco Cessation Screen If Patient is a Smoker Patient is not a smoker N/A-No Antipsychotics Vital Signs Vital Signs Date Time Temp Pulse Resp B/P (MAP) Pulse Ox O2 Delivery O2 Flow Rate FiO2 03/04/21 05:00 98.3 71 20 125/63 (83) 98 Room Air Laboratory Data 24H Labs Laboratory Tests 2 03/03/21 13:20: Nucleated Red Blood Cells % (auto) 0.0, Anion Gap 6L, Calcium Level 9.5, Total Bilirubin 0.3, Direct Bilirubin < 0.1, Aspartate Amino Transf (AST/SGOT) 25, Alanine Aminotransferase (ALT/SGPT) 55, Alkaline Phosphatase 118H, Total Protein 7.8, Albumin 4.3, Albumin/Globulin Ratio 1.2, Thyroid Stimulating Hormone (TSH) 0.901, Salicylates Level 2.3L, Urine Opiates Screen NEGATIVE, Urine Methadone Screen NEGATIVE, Acetaminophen Level < 2.0L, Urine Barbiturates Screen NEGATIVE, Urine Phencyclidine Screen NEGATIVE, Urine Amphetamines Screen NEGATIVE, Urine Benzodiazepines Screen NEGATIVE, Urine Cocaine Metabolite Screen NEGATIVE, Urine Cannabinoids Screen NEGATIVE, Ethyl Alcohol Level < 0.003 03/03/21 17:54: Coronavirus (COVID-19)(PCR) NEGATIVE, Influenza Type A (RT-PCR) NEGATIVE, Influenza Type B (RT-PCR) NEGATIVE, Respiratory Syncytial Virus (PCR) NEGATIVE CBC/BMP Laboratory Tests 03/03/21 13:20 Medications Scheduled Sertraline HCl (Sertraline HCl) 50 Mg Tablet, 75 MG PO DAILY, (Reported) Allergies Coded Allergies: No Known Allergies (Unverified , 01/02/21) RADHA BURKS NP Mar 04, 2021 12:01
[2021-03-04] MEDS: traZODone 50 MG TAB PO PRN (20:32)
[2021-03-05 06:09] VITALS: BP 128/65
[2021-03-05] MEDS: SERTRALINE HCL 25 MG TABLET PO SCH (08:45)
--- NOTE | 2021-03-05 13:58 | HPEPDOC ---
General Date of Admission Mar 03, 2021 at 12:49 Date of Service: Mar 05, 2021 Chief Complaint The patient is a 20-year-old male admitted with a reason for visit of Unspecified Depressive Disorder. 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 No complaints today. Home Medications Scheduled Sertraline HCl (Sertraline HCl) 50 Mg Tablet, 75 MG PO DAILY, (Reported) Allergies Coded Allergies: No Known Allergies (Unverified , 01/02/21) Past Medical History Medical History Unspecified depressive disorder Obesity Asthma as a child Surgical History None Family History Significant Family History: Hypertension (mother), Other (brother asthma) Social History * Smoker: Denies Alcohol: rarely Drugs: marijuana A-FIB/CHADSVASC A-FIB History Current/History of A-Fib/PAF?: No Review of Systems Constitutional: Denies: Chills, Fever, Night Sweats Eyes: Denies: Pain, Vision change ENT: Denies: Head Aches, Ear Pain, Dysphagia Skin: Denies: Rash, Lesions, Breakdown Pulmonary: Denies: Dyspnea, Cough Cardiovascular: Denies: Chest Pain, Palpitations, Orthopnea, Paroxysmal Noc. Dyspnea, Lt Headedness Gastrointestinal: Denies: Nausea, Vomiting, Abdominal Pain, Diarrhea Genitourinary: Denies: Dysuria, Frequency, Incontinence, Retention Hematologic: Denies: Bruising, Bleeding Excessively Musculoskeletal: Denies: Neck Pain, Back Pain, Joint Pain, Muscle Pain, Spasms Neurological: Denies: Weakness, Numbness, Change in speech, Confusion Psych: Reports: Depression; Denies: Memory Issues Physical Examination General Exam: Positive: Alert, Cooperative, No Acute Distress Eye Exam: Positive: PERRLA, Conjunctiva & lids normal, EOMI; Negative: Sclera icteric ENT Exam: Positive: Atraumatic, Mucous membr. moist/pink, Pharynx Normal Neck Exam: Positive: Supple; Negative: JVD, thyromegaly Chest Exam: Positive: Clear to auscultation, Normal air movement Heart Exam: Positive: Rate Normal, Regular Rhythm, Normal S1, Normal S2; Negative: Murmurs, Rubs Abdomen Exam: Positive: Normal bowel sounds, Soft; Negative: Tenderness, Hepatospenomegaly Extremity Exam: Positive: Normal pulses; Negative: Clubbing, Cyanosis, Edema Psych Exam: Positive: Memory Intact, Oriented x 3 Vital Signs Vital Signs Date Time Temp Pulse Resp B/P (MAP) Pulse Ox O2 Delivery O2 Flow Rate FiO2 03/04/21 05:00 98.3 71 20 125/63 (83) 98 Room Air Laboratory Data Labs 24H Laboratory Tests 2 03/03/21 17:54: Coronavirus (COVID-19)(PCR) NEGATIVE, Influenza Type A (RT-PCR) NEGATIVE, Influenza Type B (RT-PCR) NEGATIVE, Respiratory Syncytial Virus (PCR) NEGATIVE Assessment/Plan 20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 He is being examined here for medical history and physical. Depression As per Psychiatry No active medical complaints. Plan / VTE VTE Prophylaxis Ordered?: No (freely ambulatory) Dianne Mckee MD Mar 04, 2021 13:39
--- NOTE | 2021-03-05 14:26 | MHIPNPDOC ---
[facility] Progress Note Progress Note DATE OF SERVICE: 03/05/21 HISTORY OF THE PRESENT ILLNESS: Patient is a 20 -year-old Single, , [employer], male, who reports that he was not feeling well or safe and was feeling suicidal and homicidal towards a co-worker (he will not disclose who this is) Patient reports that this co-worker "makes me feel like crap, was making me angry because he was saying that I was faking my depression." Patient was reporting that he has an increase in depressive symptoms: depressed mood, suicidal and homicidal ideations, increased appetite with a 30-40# weight gain in 3 months, feeling hopeless and worthless, feelings of guilt and increase agitation. PER ED REPORT: Pt is seen at [facility] daily for group therapy. Called today stating he was not feeling safe, was brought by ambulance. Pt states he is not feeling well or safe, along with racing thoughts. Pt goes to group therapy daily at [facility] on [address], and today stated to staff that he felt as if he may harm himself or someone else. [facility] staff requested pt to be transported via ambulance for MHE. Pt expresses stressors to include loneliness, work stress- "work is irritating," and financial issues. Pt states there is "someone" [place] [employer] he would like to harm, but would not elaborate on this. Pt refuses to name the person whom he would like to harm. Pt states he has been overeating and oversleeping. Pt has limited local supports, as his family is from [place]. Pt states to having one friend, Harshal, whom he can talk to. Pt has a history of admission to include [facility], December 2020 for S/I. Pt is seen at [facility] once a month, and goes to daily group therapy at [facility] on [address]. Pt states he is compliant with his medications. Pt state he feels he needs to be admitted as he cannot CFS and feels that if he is discharged, he may harm himself, or someone else. Pt denies having a specific S/I and/or H/I plan. VITAL SIGNS: See below. . CURRENT MEDICATIONS: See below. MENTAL STATUS EXAMINATION: Patient is a 20 -year-old Single, , [employer], male, who reports that he was not feeling well or safe and was feeling suicidal and homicidal towards a co-worker (he will not disclose who this is) General Appearance: disheveled, appears stated age, hospital scrubs/clothing Build: overweight Demeanor: average Activity: less than average, sleeping Behavior: cooperative Speech: clear, reg/rate,rhythm,volume Mood: reports decrease in depression and anxiety Affect: flat Thought Process: logical/linear Thought Content (Delusions): none reported Thought Content (Other): none reported Thought Content (Aggressive): none reported Perception (Hallucinations): none reported Perception (Other): none reported Cognition (Impairment of): none reported Cognition(Intelligence Est.): average Oriented: Awake, Alert, Oriented times three Insight: fair Judgment: Fair Psychosis: Denies DIAGNOSES: Major depressive disorder, recurrent, moderate Cannabis use disorder ASSESSMENT: Patient found sleeping in his room. He denies depression and anxiety, denies current suicidal thoughts or homicidal thoughts, planning, or intent. He denies any paranoia, edilberto, delusions, auditory or visual hallucinations. He has not voiced any thoughts of self-harm to himself or others while he has been hospitalized. States that he is not having any violent thoughts or homicidal thinking towards his coworker. He states that this coworker is in training. And he has not seen this person since he was in intensive outpatient treatment. Patient feels that he is stable for discharge tomorrow MANAGEMENT PLAN: Continue medications and supportive therapy. Discharge tomorrow. TIME SPENT: 25 minutes. Vital Signs Vital Signs Date Time Temp Pulse Resp B/P (MAP) Pulse Ox O2 Delivery O2 Flow Rate FiO2 03/05/21 06:09 98.6 82 18 128/65 (86) 98 Room Air Current Medications Current Medications Medications (Trade) Dose Ordered Sig/Bernabe Route PRN Reason Start Time Stop Time Status Last Admin Dose Admin Acetaminophen (Tylenol Tab) 650 mg Q6HP PRN PO HEADACHE or MILD DISCOMFORT 03/03/21 22:15 Al Hydrox/Mg Hydrox/Simethicone (Mylanta) 30 ml Q4HP PRN PO HEARTBURN/INDIGESTION 03/03/21 22:15 Home Med (Home Med List Complete!) ASDIRECTED XX 03/03/21 16:40 03/03/21 16:41 DC Hydroxyzine HCl (Atarax) 50 mg Q6HP PRN PO ANXIETY/AGITATION 03/04/21 13:00 Magnesium Hydroxide (Milk Of Magnesia) 30 ml DAILYPRN PRN PO CONSTIPATION 03/03/21 22:15 03/04/21 13:07 Sertraline HCl (Zoloft) 75 mg QAM PO 03/04/21 09:00 03/05/21 08:45 Trazodone HCl (Desyrel) 50 mg QHSP PRN PO INSOMNIA 03/03/21 22:15 03/04/21 20:32 Allergies Coded Allergies: No Known Allergies (Unverified , 01/02/21) RADHA BURKS NP Mar 05, 2021 14:26
[2021-03-05] MEDS ORDERED: TRAZ-252 PO (15:04)
[2021-03-05 17:47] VITALS: BP 132/60
[2021-03-05] MEDS: traZODone 50 MG TAB PO PRN (20:16)
[2021-03-06 06:45] VITALS: BP 116/59
[2021-03-06] MEDS: SERTRALINE HCL 25 MG TABLET PO SCH (08:04)
--- NOTE | 2021-03-06 10:05 | MHDSPDOC ---
[facility] Discharge Summary Discharge Summary DATE OF ADMISSION: Mar 03, 2021 at 12:49 DATE OF DISCHARGE: March 06, 2021 at 0955 DISCHARGE DIAGNOSES: Major depressive disorder, recurrent, moderate Cannabis use disorder REASON FOR ADMISSION: Patient is a 20 -year-old Single, , [employer] [place], male, who reports that he was not feeling well or safe and was feeling suicidal and homicidal towards a co-worker (he will not disclose who this is) Patient reports that this co-worker "makes me feel like crap, was making me angry because he was saying that I was faking my depression." Patient was reporting that he has an increase in depressive symptoms: depressed mood, suicidal and homicidal ideations, increased appetite with a 30-40# weight gain in 3 months, feeling hopeless and worthless, feelings of guilt and increase agitation. PER ED REPORT: Pt is seen at [facility] daily for group therapy. Called today stating he was not feeling safe, was brought by ambulance. Pt states he is not feeling well or safe, along with racing thoughts. Pt goes to group therapy daily at [facility] on [address], and today stated to staff that he felt as if he may harm himself or someone else. [facility] staff requested pt to be transported via ambulance for MHE. Pt expresses stressors to include loneliness, work stress- "work is irritating," and financial issues. Pt states there is "someone" [place] [employer] he would like to harm, but would not elaborate on this. Pt refuses to name the person whom he would like to harm. Pt states he has been overeating and oversleeping. Pt has limited local supports, as his family is from [place]. Pt states to having one friend, Harshal, whom he can talk to. Pt has a history of admission to include [facility], December 2020 for S/I. Pt is seen at [facility] once a month, and goes to daily group therapy at [facility] on [address]. Pt states he is compliant with his medications. Pt state he feels he needs to be admitted as he cannot CFS and feels that if he is discharged, he may harm himself, or someone else. Pt denies having a specific S/I and/or H/I plan. CONSULTANTS INVOLVED: See Medical H + P by Hospitalist TREATMENT AND PROGRESS ON THE UNIT: Patient was admitted to the [facility] on a 9.39 legal status was afforded the following treatment modalities: 1) Individual Therapy 2) Group Therapy 3) Medication Management 4) Milieu Therapy 5) Safe Environment HOSPITAL COURSE: Patient was admitted to [facility] on a 9.39 legal status. He was restarted on his home medications, and he reports that he had been compliant at home and that he was at therapeutic levels. He was compliant with other therapeutic modalities of the unit, denies that he had any lingering suicidal ideations. Patient initially slept most of the mornings. He denies continued homicidal and violent thoughts towards the co- worker and stated yesterday that this co-worker was in training and was not in his regimen for awhile. Patient reports that his contract will be shortened due to his Cannabis use and he feels that this will be good as reports that he feels he is homesick and has poor supports while in the [employer]. He denies depression and anxiety today, continues to deny self harm or thoughts to hurt his friend. DISCHARGE ASSESSMENT: DISCHARGE ASSESSMENT: In today's interview, patient is alert and oriented, pt.s dress is appropriate. Hygiene and grooming is well- kempt. Smiles on approach and is pleasant and engaged in the interview. Denies depression and anxiety. Denies suicidal and homicidal ideation, planning or intent. Denies and is not observed with edilberto, psychotic symptoms of delusions, bizarre thinking, obsessions, paranoia, ruminations illogical thoughts, flight of ideas or having poor insight and judgement. Reinforced with patient need to abstain from alcohol and drugs. At discharge patient has normal mentation, declines further hospitalization on a voluntary status and meets criteria for discharge today. MENTAL STATUS EXAMINATION ON DISCHARGE: Patient is a 20 -year-old Single, , [employer] [place], male, who reports that he was not feeling well or safe and was feeling suicidal and homicidal towards a co-worker (he will not disclose who this is) General Appearance: disheveled, appears stated age, hospital scrubs/clothing Build: overweight Demeanor: average Activity: less than average, sleeping Behavior: cooperative Speech: clear, reg/rate,rhythm,volume Mood: reports decrease in depression and anxiety Affect: flat Thought Process: logical/linear Thought Content (Delusions): none reported Thought Content (Other): none reported Thought Content (Aggressive): none reported Perception (Hallucinations): none reported Perception (Other): none reported Cognition (Impairment of): none reported Cognition(Intelligence Est.): average Oriented: Awake, Alert, Oriented times three Insight: fair Judgment: Fair Psychosis: Denies Suicide Risk Assessment: 1) Does the patient wish to be ? No 2) Since your admission, have you had any actual thought of killing yourself? No 3) Since your admission, have you been thinking about how you might do this? No 4) Since your admission, have you had these thoughts and had some intention of acting on them? No 5) Since your admission, have you started to work out or worked out the details of how to kill yourself? No 5A) Do you intent to carry out this plan? No and NA 6) Have you ever done anything, started anything, or prepared to do anything with any intent to ? No 6A) How long since your admission did you do any of these? NA MEDICATIONS ON DISCHARGE: See Medications Reconciliation PLAN/FOLLOWUP ARRANGEMENTS: Patient being discharged to [facility] follow up with [facility] The amount of time spent in the coordination of care for this patient was approximately 25 minutes. ETOH/Disorder Med Rx ETOH/DRUG DISORDER RX: Offrd @ d/c & pt refused Vital Signs/I&Os Vital Signs Date Time Temp Pulse Resp B/P (MAP) Pulse Ox O2 Delivery O2 Flow Rate FiO2 03/06/21 06:45 98.3 96 18 116/59 (78) 100 Room Air Medications Scheduled Sertraline HCl (Sertraline HCl) 50 Mg Tablet, 75 MG PO DAILY, (Reported) Scheduled PRN Trazodone HCl (Trazodone HCl) 50 Mg Tablet, 50 MG PO QHSP PRN for INSOMNIA, #7 Allergies Coded Allergies: No Known Allergies (Unverified , 01/02/21) RADHA BURKS NP Mar 06, 2021 10:05
== END 2021-03-06 10:36 | disposition home or self-care (01) | DRG 885 ==
LOC: M ED 12:48 → EDBD 12:48 → M PSY 12:49
PROVIDERS: ADMIT Psychiatry & Neurology Psychiatry; ATTEND Psychiatry & Neurology Psychiatry
DX: F33.1 Major depressive disorder, recurrent, moderate (principal); R45.851 Suicidal ideations; R45.850 Homicidal ideations; F12.10 Cannabis abuse, uncomplicated; E66.9 Obesity, unspecified; Z20.822 Contact with and (suspected) exposure to COVID-19; Z79.899 Other long term (current) drug therapy; Z68.35 Body mass index [BMI] 35.0-35.9, adult; Z56.6 Other physical and mental strain related to work; Z56.4 Discord with boss and workmates